=== PATIENT | female | born 1970 ===

== ENCOUNTER → 2018-07-24 21:22 | Outpatient (REF) | payer OTHER, SELFPAY ==
[2018-07-24 21:34] LABS: Bacteria Urine None Seen; WBC Urine None Seen (0-5/HPF)
[2018-07-25 02:01] LABS: Appearance Urine UA TURBID; Bilirubin Urine UA NEGATIVE (NEGATIVE); Color Urine UA YELLOW; Glucose Urine UA NEGATIVE (Negative); Ketones Urine UA NEGATIVE (NEGATIVE); Leukocyte Esterase Urine UA NEGATIVE (NEGATIVE); Nitrite Urine UA NEGATIVE (Negative); Occult Blood Urine UA 2+ (Negative); Protein Urine UA NEGATIVE (Negative); Urobilinogen Urine UA 0.2 E.U./dL (0.2)
[2018-07-25 02:11] LABS: RBC Urine 0-1/HPF (0-5/HPF); Squamous Epithelial Cell Urine 0-1 /HPF (0-5/HPF)
[2018-07-25 02:12] LABS: Amorphous Sediment Urine 3+; Culture Indicated Urine Cult Not Indicated
[2018-07-25 02:49] LABS: Add Manual Diff / Slide Review NO; Basophils Absolute Auto 0 /uL (0-100); Basophils Percent Auto 0.7 % (0-2); Eosinophils Absolute Auto 100 /uL (0-450); Eosinophils Percent Auto 3.3 % (2-4); Hematocrit 38.2 % (36-46); Hemoglobin 13.1 g/dL (12.0-16.0); Lymphocytes Absolute Auto 1600 /uL (1100-4500); Lymphocytes Percent Auto 34.8 % (25-40); Mean Corpuscular HGB Conc 34.4 % (30-36); Mean Corpuscular Hemoglobin 31.5 PG (26-34); Mean Corpuscular Volume 91.6 fL (80-100); Monocytes Absolute Auto 300 /uL (0-900); Monocytes Percent Auto 7.5 % (3-14); Neutrophils Absolute Auto 2400 /uL (1500-7000); Neutrophils Percent Auto 53.7 % (50-75); Platelet Count 273 X10^3/uL (150-400); Red Blood Cell Count 4.17 X10^6/uL (4.0-5.2); Red Cell Distribution Width 12.8 % (11.6-14.8); White Blood Cell Count 4.5 X10^3/uL (4.5-11.0)
[2018-07-25 03:03] LABS: Alanine Aminotransferase 14 IU/L (9-52); Albumin 4.3 g/dL (3.5-5.0); Albumin Globulin Ratio 1.6 (1.0-2.8); Alkaline Phosphatase 46 U/L (38-126); Aspartate Aminotransferase 20 IU/L (14-36); BUN Creatinine Ratio 15.6 (6-22); Bilirubin Total 0.8 mg/dL (0.2-1.3); Blood Urea Nitrogen 14 mg/dL (7-17); Calcium 9.4 mg/dL (8.4-10.2); Carbon Dioxide 26 mmol/L (22-32); Chloride 104 mmol/L (98-107); Estimated Glomerular Filt Rate > 60.0 mL/min (>60); Gamma Glutamyl Transpeptidase 18 U/L (12-43); Globulin 2.7 g/dL (1.7-4.1); Glucose 79 mg/dL (70-100); HEMOLYSIS < 15 (0-50); Potassium 3.8 mmol/L (3.4-5.1); Sodium 140 mmol/L (137-145); Uric Acid 4.7 mg/dL (2.5-6.2)
[2018-07-25 03:09] LABS: Vitamin D 25 Hydroxy (D3) 51.7 ng/mL (30.0-100.0)
[2018-07-25 03:10] LABS: Erythrocyte Sedimentation Rate 8 MM/HR (0-20)
[2018-07-25 03:11] LABS: Rheumatoid Factor < 8.6 IU/mL (<12.0)
[2018-07-25 03:20] LABS: Free T3, Triiodothyronine Free 4.35 pg/mL (2.77-5.27); Free T4, Direct Thyroxine 1.32 ng/dL (0.78-2.19)
[2018-07-25 03:33] LABS: Thyroid Stimulating Hormone 1.83 uIU/mL (0.47-4.68)
[2018-07-25 03:40] LABS: Ferritin 21.3 ng/mL (6.27-137)
[2018-07-25 04:10] LABS: Folate > 20.0 ng/mL (2.76-20.0); Vitamin B12 854 pg/mL (239-931)
[2018-07-26 17:25] LABS: HEMOLYSIS < 15 (0-50); Iron 190 ug/dL (37-170)
[2018-07-26 17:36] LABS: Percent Iron Saturation 50 % (15-50); Total Iron Binding Capacity 379 ug/dL (265-497); Transferrin 305 mg/dL (206-381)
[2018-07-28 14:06] LABS: Insulin Level Total 3.1 uIU/mL (2.0-19.6)
[2018-07-28 15:10] LABS: Anti Thyroglobulin Antibody 1 IU/mL (< 2); Thyroid Peroxidase Antibodies 568 IU/mL (< 9)
[2018-07-28 16:24] LABS: C.albicans IgA 2.6; C.albicans IgG 1.2; C.albicans IgM 0.8 (<1.0)
[2018-07-29 13:47] LABS: CCP Antibody (IgG) < 16 Units (< 20)
[2018-08-01 15:03] LABS: Triiodothyronine T3 Reverse 11 ng/dL (8-25)
== END ==
LOC: LAB 21:22
PROVIDERS: Visit Provider Naturopath
DX: R53.83 Other fatigue (principal); E06.3 Autoimmune thyroiditis; E03.9 Hypothyroidism, unspecified; R21 Rash and other nonspecific skin eruption; D50.9 Iron deficiency anemia, unspecified; E53.8 Deficiency of other specified B group vitamins; M12.80 Other specific arthropathies, not elsewhere classified, unspecified site
CPT/HCPCS: 36415; 80053; 81001; 82306; 82607; 82728; 82746; 82977; 83036; 83516; 83525; 83540; 83550; 84439; 84443; 84481; 84482; 84550; 85025; 85651; 86038; 86200; 86376; 86430; 86628; 86800